=== PATIENT | female | born 1955 | race Caucasian/White ===

== ENCOUNTER → 2017-04-01 | Outpatient (CLI) | payer OTHER ==
--- NOTE | 2017-04-01 09:25 | RAD ---
Indication: Microhematuria with left back pain and flank pain for 4 days. Axial imaging through the abdomen and pelvis was performed without intravenous contrast. No prior studies are available for comparison. There is linear scarring or atelectasis in the left lower lobe. The liver and gallbladder are unremarkable. The pancreas and spleen are unremarkable. No adrenal mass is detected. No definite renal calculi are identified. No hydronephrosis is seen. The ureters are normal in caliber. Aorta is nonaneurysmal. The small and large bowel loops are normal caliber. There is no ascites. There appears to be a questionable mass versus fluid within the endometrial canal. The bladder is unremarkable. No adnexal mass is seen. Impression: 1. No evidence of urinary tract calculi or obstruction. 2. Abnormal density in the uterus, perhaps within the endometrial canal. Mass versus fluid such as hydrometra cannot be excluded. Ultrasound would be recommended for better characterization. PQRS Compliance Statement: One or more of the following individualized dose reduction techniques were utilized for this examination: 1. Automated exposure control 2. Adjustment of the mA and/or kV according to patient size 3. Use of iterative reconstruction technique
== END | disposition home or self-care (01) ==
LOC: CT 08:51
PROVIDERS: ATTEND Physician Assistant
DX: M54.5 Low back pain (principal); R31.29 Other microscopic hematuria; R10.32 Left lower quadrant pain
CPT/HCPCS: 74176